=== PATIENT | male | born 1945 | race Caucasian/White ===

== ENCOUNTER 2016-10-07 16:53 | Observation (INO) | payer MEDICARE, OTHER ==
[~2016-10-07] VITALS: Ht 188 cm; Wt 102.0 kg
[2016-10-07] MEDS ORDERED: CHLORHEXIDINE GLUCONATE 2 % 1 PACK (2 CLOTHS) TOP SCH (17:15)
[2016-10-07] MEDS ORDERED: POVIDONE IODINE 5% (ANTISEPSIS KIT) 4 APPLICATIONS EACH NARE SCH (17:15)
[2016-10-07] MEDS ORDERED: MUPIROCIN 2% OINT 1 APPLIC/GM SYR NASAL SCH (17:15)
[2016-10-07 18:42] VITALS: BP 126/58; PULSE 35; RESP 12; O2SAT 98
[2016-10-07 18:55] LABS: BASOPHIL % 0.5 % (0.0-2.0); EOSINOPHIL # 0.2 TH/MM3 (0-0.4); EOSINOPHIL % 2.9 % (0.0-4.0); HEMATOCRIT 46.2 % (39.0-51.0); HEMO FLAGS DIFF FINAL; LYMPH % 26.3 % (9.0-44.0); LYMPHOCYTE # 2.2 TH/MM3 (1.0-4.8); MEAN CORPUSCULAR HEMOGLOBIN 31.3 PG (27.0-34.0); MEAN CORPUSCULAR HGB CONC 34.4 % (32.0-36.0); MONO % 11.1 % (0.0-8.0); NEUT % 59.2 % (16.0-70.0); PLATELET COUNT 155 TH/MM3 (150-450); RED BLOOD COUNT 5.08 MIL/MM3 (4.50-5.90); RED CELL DISTRIBUTION WIDTH 12.6 % (11.6-17.2); WHITE BLOOD COUNT 8.4 TH/MM3 (4.0-11.0)
[2016-10-07] MEDS ORDERED: CLAR5TAB9 PO (18:55)
[2016-10-07 19:00] VITALS: BP 188/83; PULSE 36; RESP 18; TEMP 98.4; O2SAT 95
[2016-10-07 19:05] LABS: APTT (PATIENT) 31.7 SEC (24.3-30.1)
[2016-10-07 19:16] LABS: BICARBONATE 26.5 MEQ/L (21.0-32.0); POTASSIUM 3.9 MEQ/L (3.5-5.1)
[2016-10-07 20:00] VITALS: PULSE 40
--- NOTE | 2016-10-07 20:11 | RADRPT ---
EXAM DATE/TIME: 10/07/2016 19:45 [facility] COMPARISON: No previous studies available for comparison. INDICATIONS : Cardiomyopathy. MEDICAL HISTORY : None. SURGICAL HISTORY : None. ENCOUNTER: Initial ACUITY: 1 day PAIN SCORE: 0/10 LOCATION: chest FINDINGS: A single view of the chest demonstrates slight elevation left hemidiaphragm without evidence of mass, infiltrate or effusion. The cardiomediastinal contours are unremarkable. Mild cardiomegaly. Osseous structures are intact. CONCLUSION: 1. Elevation left hemidiaphragm. 2. Mild cardiomegaly. Robbie Castillo MD on October 07, 2016 at 20:09 Board Certified Radiologist. This report was verified electronically.
[2016-10-07 21:00] VITALS: PULSE 38
[2016-10-07 22:00] VITALS: PULSE 36
[2016-10-07 23:00] VITALS: BP 130/58; PULSE 43; PULSE 44; RESP 20; TEMP 98.6; O2SAT 95
[2016-10-08] VITALS (19 sets, daily range): BP systolic 141–169; BP diastolic 64–95; PULSE 38–93; RESP 18–20; TEMP 97.8–98.6; O2SAT 92–96
[2016-10-08] MEDS ORDERED: VANCOMYCIN 500 MG VIAL ONE (07:13)
[2016-10-08] MEDS ORDERED: LIDOCAINE HCL 1% PF 30 ML VIAL ONE (07:13)
[2016-10-08] MEDS ORDERED: VANCOMYCIN HCL 1000 MG VIAL ONE (07:13)
[2016-10-08] MEDS ORDERED: ceFAZolin INJ 1,000 MG VIAL ONE (07:14)
[2016-10-08] MEDS ORDERED: SODIUM CHLOR 0.9% 250 ML INJ 250 ML ONE (07:14)
[2016-10-08] MEDS ORDERED: MIDAZOLAM HCL 2 MG/2 ML VIAL ONE ×2 (07:14→07:42)
[2016-10-08] MEDS ORDERED: SODIUM CHLORIDE 0.9% FLUSH 5 ML FLUSH IVF PRN (08:45)
[2016-10-08] MEDS ORDERED: traMADol HCL 50 MG TAB PO PRN (08:45)
[2016-10-08] MEDS ORDERED: ACETAMINOPHEN/CODEINE 300 MG/30 MG TAB PO PRN (08:45)
[2016-10-08] MEDS ORDERED: ZOLPIDEM TARTRATE 5 MG TAB PO PRN (08:45)
[2016-10-08] MEDS ORDERED: BACITRACIN OINT 0.9 GM PKT TOP PRN (08:45)
[2016-10-08] MEDS: SODIUM CHLORIDE 0.9% FLUSH 5 ML FLUSH IVF SCH ×2 (09:00→22:44)
[2016-10-08] MEDS ORDERED: ACETAMINOPHEN 500 MG CPLT PO ONE (09:30)
--- NOTE | 2016-10-08 10:05 | RADRPT ---
EXAM DATE/TIME: 10/08/2016 09:06 [facility] COMPARISON: CHEST SINGLE AP, October 07, 2016, 19:45. INDICATIONS: Evaluate for pneumothorax. MEDICAL HISTORY: None. SURGICAL HISTORY: Pacemaker. ENCOUNTER: Subsequent ACUITY: 2 days PAIN SCORE: 0/10 LOCATION: Bilateral chest FINDINGS: The heart is enlarged. There is a poor inspiratory result. Scattered patchiness is noted bilaterall y consistent with atelectasis and/or mild infiltrates. There is no pneumothorax. A left subclavian dual lead pacemaker has its tips in the right atrium and right ventricle. CONCLUSION: 1. No pneumothorax status post placement of left subclavian pacemaker which has its tips in good pos ition in the right atrium and right ventricle. 2. Cardiomegaly. 3. Scattered patchiness consistent with atelectasis and/or infiltrates. 4. Poor inspiratory result. Keegan Stallings MD on October 08, 2016 at 9:40 Board Certified Radiologist. This report was verified electronically.
--- NOTE | 2016-10-08 12:00 | EKG ---
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
[2016-10-08] MEDS: ceFAZolin 2 GM PREMIX 50 ML IV SCH ×2 (14:47→22:44)
[2016-10-08] MEDS ORDERED: ceFAZolin 2 GM PREMIX 50 ML IV SCH (17:15)
[2016-10-08] MEDS ORDERED: VANCOMYCIN INJ 1,000 MG in SODIUM CHLOR 0.9% 250 ML INJ 250 ML IV SCH (17:15)
--- NOTE | 2016-10-08 22:26 | MP ---
cc: VIDYA PAREDES M.D. DATE OF SURGERY 10/08/16 PROCEDURE PERFORMED Implantation of a dual-chamber permanent pacemaker. PREOPERATIVE DIAGNOSIS Syncope and third degree AV block. POSTOPERATIVE DIAGNOSIS Syncope and third degree AV block. ANESTHESIA 0.1% Xylocaine local with intravenous Versed and fentanyl for awake sedation. ESTIMATED BLOOD LOSS None. COMPLICATIONS None. PROCEDURE TECHNIQUE The patient was brought to the cardiac catheterization laboratory after informed consent. The area of the left subclavian prepped and draped in usual sterile manner. Following 15 mL of 1% Xylocaine for local anesthesia, the left subclavian vein was entered two times with an 18 gauge needle without difficulty. Placement of two floppy J-tip guidewires were passed to the superior vena cava under fluoroscopic guidance without difficulty. The needles were removed and an incision was made and a pocket formed with the use of blunt dissection and Bovie cautery for hemostasis. Over the indwelling guidewires, two 7 [place] Island[place] introducer sheaths were passed and the guidewires and dilators removed. Through the introducer sheaths, active fixation pacing wires were passed to the level of the superior vena cava under fluoroscopic guidance. The sheaths were then peeled away and removed in the usual fashion. Attention was directed to the ventricular lead which was passed into the ventricle and positioned into the region of the mid intraventricular septum and actively screwed in place. The patient experienced complete heart block without a pulse briefly requiring temporary transcutaneous pacing. This was quickly resolved and the patient did not lose consciousness. The lead thresholds were checked and actively screwed in place and sutured to the pectoralis fascia with 2-0 silk. Following this, the atrial lead was positioned into the right upper lateral right atrium and actively screwed in place. When good pacing and sensing thresholds were obtained, this lead was sutured in place using 2-0 silk. The pocket was then irrigated copiously with vancomycin irrigation solution. The leads were attached to the generator and double checked for secure fastening and proper positioning. The generator and leads were placed in the pocket and the generator was sutured to the pectoralis fascia with 2-0 silk. The pocket was closed using 3-0 Vicryl for deep closure and 4-0 Vicryl for subcuticular closure in a running fashion. Steri-Strips and a sterile pressure dressing was placed. The patient was transferred to the post anesthesia unit in stable condition. Anticipated discharge tomorrow morning. PACEMAKER INFORMATION Device implanted was a Med[employer]onic Advisa DR SUKHI Calles scan, model number AD2R01. Serial number [id number]. The atrial lead is a Medtronic CapSureFix model 4076, serial number [id number]. Sensing P-wave amplitude 4.3 mV, pacing threshold 1.1 volt, impedance 741 ohms. The ventricular lead was a Medtronic CapSureFix 4006 58 cm, serial number [id number]. The initial R-wave amplitude 14.6 mV, capture threshold 0.8 volts, impedance 1556 ohms. There was no phrenic nerve or diaphragmatic stimulation at 10 volts with either lead. MD RACHEL Foley/ /8:31 AM /10:10 PM
[2016-10-09] VITALS: PULSE 73
[2016-10-09 05:00] VITALS: PULSE 64
[2016-10-09] MEDS: ceFAZolin 2 GM PREMIX 50 ML IV SCH (05:56)
[2016-10-09 07:00] VITALS: PULSE 72
[2016-10-09 08:00] VITALS: PULSE 74
--- NOTE | 2016-10-09 08:01 | PD.CARD.PN ---
Subjective Subjective Remarks Doing well. Feeling much better. Ambulating with problems. PM interrogation this AM looks good. Objective Medications Current Medications Medications (Trade) Dose Ordered Sig/Chandrakant Route PRN Reason Start Time Stop Time Status Last Admin Dose Admin Zolpidem Tartrate (Ambien) 5 mg HS PRN PO SLEEP 10/08/16 08:45 10/08/16 23:19 Acetaminophen/ Codeine Phosphate (Tylenol-Codeine #3) 1 tab Q4H PRN PO PAIN SCALE 1 TO 5 10/08/16 08:45 Tramadol HCl (Ultram) 50 mg Q4H PRN PO PAIN SCALE 6 TO 10 10/08/16 08:45 Bacitracin (Bacitracin Oint Packet) 0.9 gm UNSCH PRN TOP SEE LABEL COMMENTS 10/08/16 08:45 IV Flush (NS Flush) 2 ml BID IVF 10/08/16 09:00 10/08/16 22:44 IV Flush (NS Flush) 2 ml UNSCH PRN IVF FLUSH AFTER USING IV ACCESS 10/08/16 08:45 Vital Signs / I&O Vital Signs Date Time Temp Pulse Resp B/P Pulse Ox O2 Delivery O2 Flow Rate FiO2 10/09/16 05:00 64 10/09/16 00:00 73 10/08/16 23:00 98.1 73 18 159/95 93 10/08/16 19:00 97.9 75 18 169/78 92 10/08/16 19:00 75 10/08/16 18:00 79 10/08/16 17:00 80 10/08/16 16:33 79 10/08/16 15:35 98.2 81 18 158/68 95 10/08/16 15:35 81 10/08/16 14:00 82 10/08/16 13:00 79 10/08/16 12:00 89 10/08/16 11:00 98.0 93 18 167/76 95 10/08/16 11:00 93 10/08/16 09:13 97.8 86 20 163/68 92 10/08/16 09:09 86 10/08/16 09:04 97.8 86 20 163/68 92 I/O 10/08/16 10/08/16 10/08/16 10/09/16 10/09/16 10/09/16 07:00 15:00 23:00 07:00 15:00 23:00 Intake Total 440 ml 900 ml 660 ml Output Total 350 ml 600 ml 1000 ml Balance 90 ml 300 ml -340 ml Intake Oral 440 ml 850 ml 660 ml IV Total 50 ml Output Urine Total 350 ml 600 ml 1000 ml Stool Total 0 ml # Bowel Movements 0 0 Physical Exam VSS, afebrile. No JVD Lungs: CTA PM site bandaged, no hwematoma. Healing well. Heart: RRR, no murmur Ext: No C/C/E Neuro: intact Laboratory Laboratory Tests Test 10/07/16 18:30 White Blood Count 8.4 TH/MM3 Red Blood Count 5.08 MIL/MM3 Hemoglobin 15.9 GM/DL Hematocrit 46.2 % Mean Corpuscular Volume 91.0 FL Mean Corpuscular Hemoglobin 31.3 PG Mean Corpuscular Hemoglobin 34.4 % Concent Red Cell Distribution Width 12.6 % Platelet Count 155 TH/MM3 Mean Platelet Volume 9.9 FL Neutrophils (%) (Auto) 59.2 % Lymphocytes (%) (Auto) 26.3 % Monocytes (%) (Auto) 11.1 % Eosinophils (%) (Auto) 2.9 % Basophils (%) (Auto) 0.5 % Neutrophils # (Auto) 5.0 TH/MM3 Lymphocytes # (Auto) 2.2 TH/MM3 Monocytes # (Auto) 0.9 TH/MM3 Eosinophils # (Auto) 0.2 TH/MM3 Basophils # (Auto) 0.0 TH/MM3 CBC Comment DIFF FINAL Differential Comment Activated Partial 31.7 SEC Thromboplast Time Sodium Level 138 MEQ/L Potassium Level 3.9 MEQ/L Chloride Level 104 MEQ/L Carbon Dioxide Level 26.5 MEQ/L Anion Gap 8 MEQ/L Blood Urea Nitrogen 11 MG/DL Creatinine 0.96 MG/DL Estimat Glomerular Filtration 77 ML/MIN Rate Random Glucose 93 MG/DL Calcium Level 9.0 MG/DL Imaging Last 48 hours Impressions Chest X-Ray 10/08/16 0000 Signed Impressions: Service Date/Time: September 09:06 - CONCLUSION: 1. No pneumothorax status post placement of left subclavian pacemaker which has its tips in good position in the right atrium and right ventricle. 2. Cardiomegaly. 3. Scattered patchiness consistent with atelectasis and/or infiltrates. 4. Poor inspiratory result. Keegna Stallings MD Assessment and Plan Problem List: (1) Third degree AV block (2) Syncopal episodes Assessment and Plan CV stable and doing well s/p PPM implant yesterday. Plans for discharge home today. Instructions given and understood. F/U arranged in 2 weeks. Cipro 500 mg BID X 3 days. Code Status Full Discussed Condition With Patient and workforce staffing advisor. Zane Hussein MD Oct 09, 2016 08:00
[2016-10-09 09:00] VITALS: PULSE 73
[2016-10-09] MEDS: SODIUM CHLORIDE 0.9% FLUSH 5 ML FLUSH IVF SCH (09:00)
[2016-10-09] MEDS ORDERED: CIPROFLOXACIN 500 MG TAB PO SCH (09:00)
[2016-10-09 09:15] VITALS: BP 176/77; PULSE 73; RESP 20; TEMP 98.3; O2SAT 96
[2016-10-09] MEDS ORDERED: CIPR-9 PO (10:01)
--- NOTE | 2016-10-09 22:31 | EKG ---
Date Performed: 10/08/2016 Time Performed: 16:57:02 PTAGE: 71 years EKG: Sinus rhythm . Left bundle branch block Lateral infarct - age undetermined This is probably P wave synchronous pac ing, although, I don't actually see a pacemaker spike so clinical correlation is advised. With the S T segment elevation in leads I and aVL and the reciprocal ST depression in the inferior leads, I melvin ot exclude a high lateral wall ST segment elevation infarct in the setting of the left bundle branch block so clinical correlation will be extremely important. Since the prior tracing, the left bundle branch block and all the above described changes are new as the patient previously had complete heart block with an underlying right bundle branch block. Tracings are not directly comparable and again, clinical correlation will be important to assess the serial changes. Abnormal ECG PREVIOUS TRACING : 10/07/2016 21.33 DOCTOR: Yesy Browning Interpretating Date/Time 10/09/2016 22:31:13
== END 2016-10-09 10:33 | disposition home or self-care (01) ==
LOC: HCPC 16:53
PROVIDERS: ADMIT Internal Medicine Interventional Cardiology; ATTEND Internal Medicine Interventional Cardiology
DX: I44.2 Atrioventricular block, complete (principal); R55 Syncope and collapse; I45.10 Unspecified right bundle-branch block; I70.0 Atherosclerosis of aorta; Z87.891 Personal history of nicotine dependence; I08.1 Rheumatic disorders of both mitral and tricuspid valves; R00.1 Bradycardia, unspecified
CPT/HCPCS: 33208; 71010; 80048; 85025; 85730; 93005; C1785; C1898; G0378; J0690; J2250; J3010; J3370; J7050

== ENCOUNTER → 2016-11-24 | Outpatient (CLI) | payer MEDICARE, OTHER ==
[~2016-11-24] MED LIST: CIPR-9 PO; CLAR5TAB9 PO
[2016-11-24 11:04] LABS: BICARBONATE 27.2 MEQ/L (21.0-32.0); POTASSIUM 4.3 MEQ/L (3.5-5.1)
== END ==
LOC: CLAB 10:27
PROVIDERS: ATTEND Internal Medicine Interventional Cardiology
DX: I44.2 Atrioventricular block, complete (principal); R55 Syncope and collapse; I65.23 Occlusion and stenosis of bilateral carotid arteries; R03.0 Elevated blood-pressure reading, without diagnosis of hypertension
CPT/HCPCS: 36415; 80048

== ENCOUNTER → 2016-11-26 | Outpatient (CLI) | payer MEDICARE, OTHER ==
[~2016-11-26] MED LIST changes: +GADODIAMIDE PF 287 MG/ML 20 ML VIAL (for RAD MRI) IV ONE
--- NOTE | 2016-11-26 16:10 | RADRPT ---
EXAM DATE/TIME: 11/26/2016 13:47 [facility] COMPARISON: No previous studies available for comparison. INDICATIONS : Dizziness. CONTRAST: 20 cc Omniscan (gadodiamide) IV MEDICAL HISTORY : Hypertension. SURGICAL HISTORY : Pacemaker. Lumbar. ENCOUNTER: Initial ACUITY: 1 day PAIN SCORE: 0/10 LOCATION: neck Percent stenosis is calculated using the diameter of the stenotic region over the diameter of the nor mal distal internal carotid artery. TECHNIQUE: Bolus infused MRA of the extracranial circulation was performed using a neurovascular coil. Post pro cessing was performed including rotating subvolume maximum intensity projections of each carotid kathy ry, rotating full volume maximum intensity projections of both carotid arteries, sagittal and coronal sliding thin slab reformations of each carotid artery, and left oblique sliding thin slab reformatio n through the aortic arch to include the origin of the arch branch vessels. FINDINGS: AORTIC ARCH: There is a three vessel origin of the great vessels from the aorta. No evidence of ostial narrowing. RIGHT CAROTID: The common carotid artery is intact. The carotid bulb has a normal configuration without ulceration or narrowing. The internal carotid artery lumen is smooth without stenosis. The external carotid ar lui is intact. LEFT CAROTID: The common carotid artery is intact. The carotid bulb has a normal configuration without ulceration or narrowing. The internal carotid artery lumen is smooth without stenosis. The external carotid ar liu is intact. VERTEBRALS: The vertebral arteries have a symmetric diameter. No stenotic lesions are seen. CONCLUSION: Negative MR angiography of the carotid arteries Nicola Barros MD on November 26, 2016 at 15:51 Board Certified Radiologist. This report was verified electronically.
== END ==
LOC: HRAD 12:59
PROVIDERS: ATTEND Internal Medicine Interventional Cardiology
DX: I65.23 Occlusion and stenosis of bilateral carotid arteries (principal)
CPT/HCPCS: 70548; A9579